=== PATIENT | male | born 1965 | race Two or more races ===

== ENCOUNTER 2017-12-20 05:18 | Emergency (ER) | payer SELFPAY, OTHER ==
[2017-12-20 05:48] LABS: ADD MAN DIFF? NO
[2017-12-20 05:51] LABS: BASOPHILS % 0.8 % (0.0-2.0); EOSINOPHILS # 0.1 10^3/ul (0.0-0.5); EOSINOPHILS % 1.5 % (0.0-7.0); HEMATOCRIT 42.2 % (42.0-52.0); LYMPHOCYTES # 1.5 10^3/ul (0.8-2.9); LYMPHOCYTES % 29.3 % (15.0-51.0); MEAN CORPUSCULAR HEMOGLOBIN 33.3 pg (29.0-33.0); MEAN CORPUSCULAR HGB CONC 35.5 g/dl (32.0-37.0); MEAN CORPUSCULAR VOLUME 93.8 fl (82.0-101.0); MONOCYTE # 0.6 10^3/ul (0.3-0.9); MONOCYTES % 10.6 % (0.0-11.0); NEUTROPHILS % 57.6 % (39.0-77.0); PLATELET COUNT 168 10^3/UL (140-415); RED CELL DISTRIBUTION WIDTH 14.6 % (11.5-14.5)
[2017-12-20 05:51] LABS: WHITE BLOOD COUNT 5.3 10^3/ul (4.8-10.8)
[2017-12-20 06:09] LABS: ANION GAP 23 (8-16); BLOOD UREA NITROGEN 4 mg/dl (7-20); CARBON DIOXIDE 28 mmol/L (21-31); CHLORIDE 101 mmol/L (97-110); CREATININE 0.67 mg/dl (0.61-1.24); GLUCOSE 106 mg/dl (70-220); POTASSIUM 4.4 mmol/L (3.5-5.1); SODIUM 148 mmol/L (135-144)
[2017-12-20 06:24] LABS: TROPONIN-I < 0.012 ng/ml (0.00-0.12)
[2017-12-20 06:59] LABS: LIPASE 417 U/L (23-300)
[2017-12-20] MEDS: SOD CHLORIDE 0.9% 1,000 ML IV (07:08)
[2017-12-20] MEDS: LIDOCAINE/MYLANTA 40 ML BTL PO (07:08)
[2017-12-20] MEDS: FAMOTIDINE 20 MG TAB PO (07:08)
[2017-12-20] MEDS: ONDANSETRON 4 MG INJ IV (07:08)
[2017-12-20] MEDS: BELLADONNA/PHENOBARBITAL TAB PO (07:08)
[2017-12-20] MEDS: OXYCODONE/ACETAMINOPHEN (5/325) TAB PO (07:09)
== END 2017-12-20 08:10 | disposition home or self-care (01) ==
LOC: E/R 05:18
DX: S43.402A Unspecified sprain of left shoulder joint, initial encounter (principal); K29.00 Acute gastritis without bleeding; R20.2 Paresthesia of skin; F10.20 Alcohol dependence, uncomplicated; F17.210 Nicotine dependence, cigarettes, uncomplicated; R07.9 Chest pain, unspecified; X58.XXXA Exposure to other specified factors, initial encounter; Y92.9 Unspecified place or not applicable
CPT/HCPCS: 36415; 71045; 80048; 83690; 84484; 85025; 93005; 96374; 99285-25

== ENCOUNTER 2018-01-05 19:59 | Inpatient (IN) | payer SELFPAY ==
[2018-01-05] MEDS: IPRATROPIUM (NEB) 0.5 MG/2.5 ML AMP HHN (20:50)
[2018-01-05] MEDS: LEVALBUTEROL (NEB) 1.25 MG/0.5 ML AMP HHN (20:50)
[2018-01-05] MEDS: LEVOFLOXACIN 750MG/D5W (PMX) 150 ML IVPB (21:05)
[2018-01-05] MEDS: SODIUM CHLORIDE 0.9% 1L BAG IV* (21:06)
[2018-01-05 21:13] LABS: ADD MAN DIFF? NO
[2018-01-05 21:16] LABS: WHITE BLOOD COUNT 10.6 10^3/ul (4.8-10.8)
[2018-01-05 21:16] LABS: BASOPHIL # 0.1 10^3/ul (0.0-0.1); BASOPHILS % 0.6 % (0.0-2.0); EOSINOPHILS # 0.2 10^3/ul (0.0-0.5); EOSINOPHILS % 1.6 % (0.0-7.0); HEMATOCRIT 42.4 % (42.0-52.0); HEMOGLOBIN 14.9 g/dl (14.0-18.0); LYMPHOCYTES # 2.8 10^3/ul (0.8-2.9); LYMPHOCYTES % 26.3 % (15.0-51.0); MEAN CORPUSCULAR HEMOGLOBIN 33.6 pg (29.0-33.0); MEAN CORPUSCULAR HGB CONC 35.1 g/dl (32.0-37.0); MEAN CORPUSCULAR VOLUME 95.5 fl (82.0-101.0); MEAN PLATELET VOLUME 9.2 fl (7.4-10.4); MONOCYTE # 0.5 10^3/ul (0.3-0.9); MONOCYTES % 4.6 % (0.0-11.0); NEUTROPHIL # 7.1 10^3/ul (1.6-7.5); NEUTROPHILS % 66.5 % (39.0-77.0); PLATELET COUNT 253 10^3/UL (140-415); RED BLOOD COUNT 4.44 10^6/ul (4.70-6.10)
[2018-01-05 21:32] LABS: INR 0.93; PROTIME 12.6 Sec (11.9-14.9)
[2018-01-05 21:33] LABS: PARTIAL THROMBOPLASTIN TIME 31.7 Sec (25.0-35.0)
[2018-01-05 21:35] LABS: LACTIC ACID 1.5 mmol/L (0.5-2.0)
[2018-01-05 21:38] LABS: ALANINE AMINOTRANSFERASE 55 IU/L (13-69); ALBUMIN 4.3 g/dl (3.3-4.9); ALKALINE PHOSPHATASE 91 IU/L (42-121); ANION GAP 19 (8-16); ASPARTATE AMINO TRANSFERASE 44 IU/L (15-46); BILIRUBIN,INDIRECT 0.1 mg/dl (0-1.1); BILIRUBIN,TOTAL 0.1 mg/dl (0.2-1.3); BLOOD UREA NITROGEN 10 mg/dl (7-20); CALCIUM 9.1 mg/dl (8.4-10.2); CARBON DIOXIDE 27 mmol/L (21-31); CHLORIDE 106 mmol/L (97-110); GLUCOSE 136 mg/dl (70-220); POTASSIUM 4.1 mmol/L (3.5-5.1); SODIUM 148 mmol/L (135-144); TOTAL PROTEIN 7.6 g/dl (6.1-8.1)
[2018-01-05 22:15] LABS: B-TYPE NATRIURETIC PEPTIDE < 11 PG/ML (0-125); TROPONIN-I < 0.012 ng/ml (0.00-0.12)
[2018-01-05 22:47] LABS: LACTIC ACID 2.3 mmol/L (0.5-2.0)
[2018-01-05] MEDS: IOHEXOL 100 ML (22:54)
[2018-01-05] MEDS: SOD CHLORIDE 0.9% 100 ML (22:55)
[2018-01-06 00:45] LABS: ADD UMIC NO; UR ASCORBIC ACID NEGATIVE (NEGATIVE); UR BILIRUBIN (Dip) NEGATIVE (NEGATIVE); UR BLOOD (Dip) NEGATIVE (NEGATIVE); UR CLARITY CLEAR (CLEAR); UR COLOR STRAW (YELLOW); UR GLUCOSE (Dip) NEGATIVE (NEGATIVE); UR KETONES (Dip) TRACE mg/dL (NEGATIVE); UR LEUKOCYTE ESTERASE (Dip) NEGATIVE Leu/ul (NEGATIVE); UR NITRITE (Dip) NEGATIVE (NEGATIVE); UR SPECIFIC GRAVITY (Dip) 1.038 (1.003-1.030); UR TOTAL PROTEIN (Dip) NEGATIVE (NEGATIVE); UR UROBILINOGEN (Dip) NEGATIVE (NEGATIVE)
[2018-01-06 00:59] LABS: BARBITURATES Negative (NEGATIVE); CANNABINOIDS Negative (NEGATIVE); OPIATES Negative (NEGATIVE)
[2018-01-06 01:05] LABS: AMPHETAMINE/METHAMPHETAMINE Negative (NEGATIVE); BENZODIAZEPINES Positive (NEGATIVE); COCAINE Negative (NEGATIVE)
[2018-01-06 01:05] LABS: LACTIC ACID 3.5 mmol/L (0.5-2.0)
[2018-01-06] MEDS: ASPIRIN 81 MG TAB PO (01:14)
[2018-01-06] MEDS: LORAZEPAM 2 MG INJ IV (01:15)
[2018-01-06] MEDS ORDERED: NACL 0.9% 3 ML SYG IV (01:30)
[2018-01-06] MEDS: CHLORDIAZEPOXIDE 25 MG CAP PO ×3 (03:59→13:12)
[2018-01-06] MEDS: ENOXAPARIN 30 MG/0.3 ML SYG SC (09:53)
[2018-01-06 11:19] LABS: ADD MAN DIFF? NO
[2018-01-06 11:23] LABS: BASOPHILS % 0.3 % (0.0-2.0); EOSINOPHILS # 0.1 10^3/ul (0.0-0.5); EOSINOPHILS % 1.6 % (0.0-7.0); HEMATOCRIT 37.5 % (42.0-52.0); HEMOGLOBIN 13.4 g/dl (14.0-18.0); LYMPHOCYTES # 1.5 10^3/ul (0.8-2.9); MEAN CORPUSCULAR HEMOGLOBIN 34.4 pg (29.0-33.0); MEAN CORPUSCULAR HGB CONC 35.7 g/dl (32.0-37.0); MEAN CORPUSCULAR VOLUME 96.2 fl (82.0-101.0); MEAN PLATELET VOLUME 9.1 fl (7.4-10.4); MONOCYTE # 0.6 10^3/ul (0.3-0.9); MONOCYTES % 6.1 % (0.0-11.0); NEUTROPHIL # 6.7 10^3/ul (1.6-7.5); NEUTROPHILS % 74.7 % (39.0-77.0); PLATELET COUNT 178 10^3/UL (140-415); RED CELL DISTRIBUTION WIDTH 14.7 % (11.5-14.5)
[2018-01-06 11:39] LABS: HEMOGLOBIN A1C 5.1 % (0-5.9)
[2018-01-06 11:42] LABS: LACTIC ACID 1.3 mmol/L (0.5-2.0)
[2018-01-06 11:46] LABS: ETHANOL < 10.0 mg/dl
[2018-01-06 11:49] LABS: ALANINE AMINOTRANSFERASE 45 IU/L (13-69); ALBUMIN 3.8 g/dl (3.3-4.9); ALBUMIN/GLOBULIN RATIO 1.31; ALKALINE PHOSPHATASE 89 IU/L (42-121); ANION GAP 13 (8-16); ASPARTATE AMINO TRANSFERASE 33 IU/L (15-46); BILIRUBIN,INDIRECT 0.6 mg/dl (0-1.1); BILIRUBIN,TOTAL 0.6 mg/dl (0.2-1.3); BLOOD UREA NITROGEN 6 mg/dl (7-20); CALCIUM 8.9 mg/dl (8.4-10.2); CARBON DIOXIDE 28 mmol/L (21-31); CHLORIDE 101 mmol/L (97-110); CREATININE 0.57 mg/dl (0.61-1.24); GLUCOSE 99 mg/dl (70-220); MAGNESIUM 1.6 mg/dl (1.7-2.5); PHOSPHORUS 3.3 mg/dl (2.5-4.9); POTASSIUM 3.7 mmol/L (3.5-5.1); SODIUM 138 mmol/L (135-144); TOTAL PROTEIN 6.7 g/dl (6.1-8.1)
[2018-01-06] MEDS: MAGNESIUM CHLORIDE (SR) 64 MG TAB PO (13:23)
== END 2018-01-06 13:44 | disposition home or self-care (01) | DRG 897 ==
LOC: MS3 23:50 → E/R 19:59
DX: F10.239 Alcohol dependence with withdrawal, unspecified (principal); R00.0 Tachycardia, unspecified; Y90.0 Blood alcohol level of less than 20 mg/100 ml; F17.210 Nicotine dependence, cigarettes, uncomplicated
CPT/HCPCS: 36415; 71045; 71275; 80053; 80306; 80307; 81003; 83036; 83605; 83735; 83880; 84100; 84443; 84484; 85025; 85610; 85730; 87040; 93005; 94664; 96374; 96375; 99285-25

== ENCOUNTER 2018-03-12 22:32 | Emergency (ER) | payer SELFPAY ==
[2018-03-13 00:01] LABS: ADD MAN DIFF? NO
[2018-03-13 00:06] LABS: BASOPHILS % 0.5 % (0.0-2.0); EOSINOPHILS % 0.4 % (0.0-7.0); HEMATOCRIT 44.1 % (42.0-52.0); HEMOGLOBIN 15.8 g/dl (14.0-18.0); LYMPHOCYTES % 25.1 % (15.0-51.0); MEAN CORPUSCULAR HEMOGLOBIN 35.1 pg (29.0-33.0); MEAN CORPUSCULAR HGB CONC 35.8 g/dl (32.0-37.0); MEAN PLATELET VOLUME 9.6 fl (7.4-10.4); MONOCYTE # 0.7 10^3/ul (0.3-0.9); MONOCYTES % 9.2 % (0.0-11.0); NEUTROPHIL # 5.2 10^3/ul (1.6-7.5); NEUTROPHILS % 64.6 % (39.0-77.0); PLATELET COUNT 123 10^3/UL (140-415); RED CELL DISTRIBUTION WIDTH 13.9 % (11.5-14.5)
[2018-03-13 00:06] LABS: WHITE BLOOD COUNT 8.1 10^3/ul (4.8-10.8)
[2018-03-13 00:22] LABS: ANION GAP 19 (8-16); BLOOD UREA NITROGEN 14 mg/dl (7-20); CALCIUM 9.3 mg/dl (8.4-10.2); CARBON DIOXIDE 24 mmol/L (21-31); CHLORIDE 103 mmol/L (97-110); CREATININE 0.72 mg/dl (0.61-1.24); GLUCOSE 97 mg/dl (70-220); SODIUM 142 mmol/L (135-144)
[2018-03-13] MEDS: SOD CHLORIDE 0.9% 500 ML IV (00:22)
[2018-03-13 00:25] LABS: INR 0.94; PROTIME 12.7 Sec (11.9-14.9)
[2018-03-13 00:26] LABS: PARTIAL THROMBOPLASTIN TIME 30.9 Sec (25.0-35.0)
[2018-03-13 00:34] LABS: TROPONIN-I < 0.010 ng/ml (0.000-0.120)
[2018-03-13] MEDS: HYDROCODONE/APAP (10/325) TAB PO (00:36)
== END 2018-03-13 04:39 | disposition home or self-care (01) ==
LOC: E/R 03-13 04:39
DX: R55 Syncope and collapse (principal); F10.20 Alcohol dependence, uncomplicated
CPT/HCPCS: 36415; 70450; 71045; 73030-RT; 80048; 82962; 84484; 85025; 85610; 85730; 93005; 99285-25

== ENCOUNTER 2018-08-04 20:36 | Emergency (ER) | payer MEDICAID ==
[2018-08-04] MEDS: SOD CHLORIDE 0.9% 1,000 ML IV (21:22)
[2018-08-04] MEDS: LORAZEPAM 2 MG INJ IV (21:22)
[2018-08-04 21:37] LABS: ADD UMIC YES; UR ASCORBIC ACID NEGATIVE (NEGATIVE); UR BILIRUBIN (Dip) NEGATIVE (NEGATIVE); UR BLOOD (Dip) NEGATIVE (NEGATIVE); UR CLARITY CLEAR (CLEAR); UR COLOR YELLOW (YELLOW); UR GLUCOSE (Dip) 3+ mg/dL (NEGATIVE); UR KETONES (Dip) 1+ mg/dL (NEGATIVE); UR LEUKOCYTE ESTERASE (Dip) NEGATIVE Leu/ul (NEGATIVE); UR NITRITE (Dip) NEGATIVE (NEGATIVE); UR RBC 1 /HPF (0-5); UR TOTAL PROTEIN (Dip) 2+ mg/dl (NEGATIVE); UR UROBILINOGEN (Dip) 2+ mg/dL (NEGATIVE); UR WBC 0 /HPF (0-5)
[2018-08-04 21:52] LABS: AMPHETAMINE/METHAMPHETAMINE Negative (NEGATIVE); BARBITURATES Negative (NEGATIVE); BENZODIAZEPINES Negative (NEGATIVE); CANNABINOIDS Negative (NEGATIVE); COCAINE Negative (NEGATIVE); OPIATES Negative (NEGATIVE)
[2018-08-04] MEDS: MAGNESIUM SULFATE 2 GM, MULTIVITAMINS 10 ML, THIAMINE 100 MG, FOLIC ACID 1 MG in SOD CH... IV (22:02)
[2018-08-04 22:21] LABS: ADD MAN DIFF? NO
[2018-08-04 22:32] LABS: ABNORMAL IP MESSAGE 1; BASOPHILS % 0.2 % (0.0-2.0); EOSINOPHILS % 0.2 % (0.0-7.0); HEMATOCRIT 35.2 % (42.0-52.0); HEMOGLOBIN 12.2 g/dl (14.0-18.0); LYMPHOCYTES # 0.5 10^3/ul (0.8-2.9); LYMPHOCYTES % 11.4 % (15.0-51.0); MEAN CORPUSCULAR HGB CONC 34.7 g/dl (32.0-37.0); MEAN CORPUSCULAR VOLUME 98.1 fl (82.0-101.0); MEAN PLATELET VOLUME 9.9 fl (7.4-10.4); MONOCYTE # 0.5 10^3/ul (0.3-0.9); MONOCYTES % 11.6 % (0.0-11.0); NEUTROPHIL # 3.5 10^3/ul (1.6-7.5); NEUTROPHILS % 76.2 % (39.0-77.0); PLATELET COUNT 102 10^3/UL (140-415); POSITIVE DIFF @See below; RED BLOOD COUNT 3.59 10^6/ul (4.70-6.10); RED CELL DISTRIBUTION WIDTH 13.4 % (11.5-14.5)
[2018-08-04 22:32] LABS: WHITE BLOOD COUNT 4.6 10^3/ul (4.8-10.8)
[2018-08-04 22:45] LABS: ALANINE AMINOTRANSFERASE 82 IU/L (13-69); ALBUMIN 3.6 g/dl (3.3-4.9); ALBUMIN/GLOBULIN RATIO 1.33; ALKALINE PHOSPHATASE 89 IU/L (42-121); ANION GAP 9 (5-13); ASPARTATE AMINO TRANSFERASE 115 IU/L (15-46); BILIRUBIN,INDIRECT 0.9 mg/dl (0-1.1); BILIRUBIN,TOTAL 0.9 mg/dl (0.2-1.3); BLOOD UREA NITROGEN 14 mg/dl (7-20); CALCIUM 8.5 mg/dl (8.4-10.2); CARBON DIOXIDE 24 mmol/L (21-31); CHLORIDE 103 mmol/L (97-110); CREATININE 0.56 mg/dl (0.61-1.24); Estimated GFR > 60 mL/min (>60); GLUCOSE 115 mg/dl (70-220); POTASSIUM 3.6 mmol/L (3.5-5.1); SODIUM 136 mmol/L (135-144); TOTAL PROTEIN 6.3 g/dl (6.1-8.1)
[2018-08-04 22:46] LABS: ETHANOL < 10.0 mg/dl (0-0)
[2018-08-04 22:47] LABS: INR 1.04; PROTIME 13.7 Sec (11.9-14.9); PT RATIO 1.1
[2018-08-04 22:48] LABS: PARTIAL THROMBOPLASTIN TIME 27.8 Sec (23.0-35.0)
[2018-08-04 22:56] LABS: TROPONIN-I < 0.012 ng/ml (0.000-0.120)
[2018-08-04] MEDS: LEVETIRACETAM 1000 MG (PMX) 100 ML IVPB (22:58)
== END 2018-08-05 00:50 | disposition home or self-care (01) ==
LOC: E/R 08-05 00:50
DX: R56.9 Unspecified convulsions (principal); R40.2142 Coma scale, eyes open, spontaneous, at arrival to emergency department; R40.2362 Coma scale, best motor response, obeys commands, at arrival to emergency department; R40.2242 Coma scale, best verbal response, confused conversation, at arrival to emergency department; F17.210 Nicotine dependence, cigarettes, uncomplicated
CPT/HCPCS: 36415; 70450; 71045; 80053; 80307; 81001; 84484; 85025; 85610; 85730; 93005; 96374; 96375; 99285-25

== ENCOUNTER 2019-04-07 11:01 | Emergency (ER) | payer SELFPAY, MEDICAID ==
[2019-04-07] MEDS: ACETAMINOPHEN 325 MG TAB PO (12:33)
[2019-04-07] MEDS: LORAZEPAM 0.5 MG TAB PO (12:33)
[2019-04-07] MEDS: LIDOCAINE 1% (MPF) 5 ML VIAL INFIL (12:36)
[2019-04-07] MEDS: SILVER NITRATE SWAB TOP (13:53)
[2019-04-07] MEDS: IBUPROFEN 800 MG TAB PO (13:54)
[2019-04-07] MEDS: ACETAMINOPHEN 500 MG TAB PO (14:43)
== END 2019-04-07 16:45 | disposition home or self-care (01) ==
LOC: FTE 11:01
DX: S01.81XA Laceration without foreign body of other part of head, initial encounter (principal); F17.210 Nicotine dependence, cigarettes, uncomplicated; W22.8XXA Striking against or struck by other objects, initial encounter; Y92.9 Unspecified place or not applicable
CPT/HCPCS: 12013; 70110; 70450; 99284-25